=== PATIENT | female | born 1980 | race Caucasian/White ===

== ENCOUNTER 2016-07-19 10:30 | Emergency (ER) | payer OTHER ==
[~2016-07-19] VITALS: Ht 162.5 cm; Wt 65.8 kg
[~2016-07-19 10:30] MED LIST: ADDERALL30 MG PO; ANAPROX DS550 MG PO; AUGMENTIN 875 M1 TAB PO; BACTRIM DS 8001 TA1 PO; BENTYL10 MG PO; CIPRO250 MG PO; DAYPRO600 M1 PO; DOXYCYCLINE MO100 MG PO; FLEXERIL10 MG PO; MOTRIN800 MG PO; NAPROSYN500 MG PO; PEN-VEE K500 MG PO; PYRIDIUM200 MG PO; TRAMADOL HCL50 MG PO; VICODIN 5/500 505 MG PO; ZANTAC150 MG PO; ZITHROMAX Z PA250 MG PO
[2016-07-19] MEDS ORDERED: ADDERALL XR 3030 MG PO (10:51)
== END 2016-07-19 12:44 | disposition home or self-care (01) ==
LOC: ED 10:30
DX: S83.92XA Sprain of unspecified site of left knee, initial encounter (principal); Z79.899 Other long term (current) drug therapy; X58.XXXA Exposure to other specified factors, initial encounter; Y93.89 Activity, other specified; Y92.9 Unspecified place or not applicable; Y99.9 Unspecified external cause status

== ENCOUNTER 2020-01-10 16:49 | Emergency (ER) | payer OTHER ==
[~2020-01-10] VITALS: Wt 68.0 kg
[~2020-01-10 16:49] MED LIST changes: +ADDERALL XR 3030 MG PO
== END 2020-01-10 17:26 | disposition home or self-care (01) ==
LOC: ED 16:49
DX: H60.91 Unspecified otitis externa, right ear (principal); H61.21 Impacted cerumen, right ear; Z79.899 Other long term (current) drug therapy

== ENCOUNTER 2020-02-24 13:34 | Emergency (ER) | payer OTHER ==
[~2020-02-24] VITALS: Ht 165.1 cm; Wt 72.6 kg
== END 2020-02-24 16:05 | disposition home or self-care (01) ==
LOC: ED 13:34
DX: K59.00 Constipation, unspecified (principal); Z79.899 Other long term (current) drug therapy

== ENCOUNTER 2021-12-20 01:27 | Emergency (ER) | payer OTHER | END 2021-12-20 02:51 | disposition home or self-care (01) | LOC: ED 01:27 | DX: R55 Syncope and collapse (principal) ==

== ENCOUNTER 2023-05-16 10:13 | Emergency (ER) | payer OTHER ==
[~2023-05-16] VITALS: Ht 162.5 cm; Wt 77.1 kg
== END 2023-05-16 12:18 | disposition home or self-care (01) ==
LOC: ED 10:13
DX: H10.89 Other conjunctivitis (principal); H60.92 Unspecified otitis externa, left ear; F90.9 Attention-deficit hyperactivity disorder, unspecified type; Z98.890 Other specified postprocedural states

== ENCOUNTER 2025-01-28 05:41 | Emergency (ER) | payer MEDICAID ==
[~2025-01-28] VITALS: Ht 162.5 cm; Wt 77.1 kg
[2025-01-28] MEDS ORDERED: AMOX-CLAV 875-1 EACH PO (06:19)
[2025-01-28] MEDS ORDERED: MELOXICAM15 MG PO (06:19)
[2025-01-28] MEDS ORDERED: Amoxicillin/Clavulanate Pota 875 MG TAB PO ONE (06:20)
== END 2025-01-28 06:20 | disposition home or self-care (01) ==
LOC: ED 05:41
DX: K04.7 Periapical abscess without sinus (principal); K02.9 Dental caries, unspecified; Z79.899 Other long term (current) drug therapy; Z98.890 Other specified postprocedural states

== ENCOUNTER 2025-01-31 09:55 | Emergency (ER) | payer SELFPAY ==
[~2025-01-31] VITALS: Ht 157.4 cm; Wt 77.1 kg
[~2025-01-31 09:55] MED LIST changes: +AMOX-CLAV 875-1 EACH PO; +MELOXICAM15 MG PO
[2025-01-31] MEDS ORDERED: Ondansetron4 MG PO (10:58)
== END 2025-01-31 11:04 | disposition home or self-care (01) ==
LOC: ED 09:55
DX: K02.9 Dental caries, unspecified (principal); R11.2 Nausea with vomiting, unspecified; Z79.899 Other long term (current) drug therapy; Z98.890 Other specified postprocedural states